=== PATIENT | male | born 1945 | race Caucasian/White ===

== ENCOUNTER 2017-05-03 09:33 | Emergency (ER) | payer OTHER, MEDICARE ==
--- NOTE | 2017-05-03 10:07 | ER Document Report ---
ED Animal Bite - General Chief Complaint: Dog Bite Stated Complaint: DOG BITE Time Seen by Provider: 05/03/17 09:49 Mode of Arrival: Ambulatory Information source: Patient Notes: Patient is a 71-year-old male presents to the ED complaining of a dog bite to his right forearm that happened this morning with puncture wounds. Patient states that his neighbor's dog. The dog is reported to have its immunizations up-to-date. Patient states that his last tetanus was in the last 2 years. Patient states that he continues to have mobility in his right arm forearm and right wrist, but does have pain associated. He denies any numbness/tingling. Denies any loss of strength/paralysis. Denies any fever, chest pain, palpitations, shortness breath, dyspnea, abdominal pain, nausea/vomiting. No med allergies. Patient takes medication for hypertension and an enlarged prostate. 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 TRAVEL OUTSIDE OF THE [place] IN LAST 30 DAYS: No - HPI Context of attack: "Unprovoked" attack - pt was walking on the sidewalk with his , neighbor's dogs were off-leash. He was starting to talk with one of the dogs when another came up and bit his arm and fled. Appearance of animal: Appeared well Animal's immunizations: UTD - per the dog's owners - Related Data Allergies/Adverse Reactions: No Known Allergies Allergy (Verified 05/03/17 09:36) Past Medical History - Social History Smoking Status: Unknown if Ever Smoked Family History: Reviewed & Not Pertinent Patient has suicidal ideation: No Patient has homicidal ideation: No Renal/ Medical History: Denies: Hx Peritoneal Dialysis Review of Systems - Review of Systems Notes: REVIEW OF SYSTEMS: CONSTITUTIONAL : Denies fever, chills, or sweats. Denies recent illness. EENT: Denies eye, ear, throat, or mouth pain or symptoms. Denies nasal or sinus congestion or discharge. Denies throat, tongue, or mouth swelling or difficulty swallowing. CARDIOVASCULAR: Denies chest pain. Denies palpitations or racing or irregular heart beat. Denies ankle edema. RESPIRATORY: Denies cough, cold, or chest congestion. Denies shortness of breath, difficulty breathing, or wheezing. GASTROINTESTINAL: Denies abdominal pain or distention. Denies nausea, vomiting , or diarrhea. Denies blood in vomitus, stools, or per rectum. Denies black, tarry stools. Denies constipation. GENITOURINARY: Denies difficulty urinating, painful urination, burning, frequency, blood in urine, or discharge. MUSCULOSKELETAL: see hpi SKIN: see hpi Neuro: see hpi ALL OTHER SYSTEMS REVIEWED AND NEGATIVE. Dictation was performed using [employer] voice recognition software Physical Exam - Vital signs Vitals: Temp Pulse Resp BP Pulse Ox 97.8 F 67 20 174/87 H 100 05/03/17 09:36 05/03/17 09:36 05/03/17 09:36 05/03/17 09:36 05/03/17 09:36 Notes: PHYSICAL EXAMINATION: GENERAL: Well-appearing, well-nourished and in no acute distress. LUNGS: Breath sounds clear to auscultation bilaterally and equal. No wheezes rales or rhonchi. HEART: Regular rate and rhythm without murmurs, rubs, gallops. Musculoskeletal: Rt arm, forearm, wrist: FROM to passive/active. Strength 5+/ 5. Cardiac Catheterization Technician strength intact. N/V intact distal. Extremities: No cyanosis, clubbing, or edema b/l. Peripheral pulses 2+. Capillary refill less than 3 seconds. NEUROLOGICAL: Normal sensory, motor exams. Reflexes intact. PSYCH: Normal mood, normal affect. SKIN: + 0.5cm puncture wound to the rt posterior forearm with 2 smaller abrasion /slight puncture wound to the posterolateral forearm. + bleeding, controlled, from the larger puncture wound. Course - Re-evaluation Re-evalutation: 05/03/17 11:12 Patient is afebrile, well-hydrated, 71-year-old male who presents the ED status post dog bite this morning his right forearm. Tetanus is up-to-date. X-ray was unremarkable for any foreign body or fracture. Neurovascularly the patient' s right upper extremity is intact, and PE is otherwise unremarkable for any systemic infection at this time. Vitals are stable. Wound dressing performed with minimal debridement. We will not suture the wound at this time. I will send him home with Augmentin 875/125 mg p.o. twice daily for 1 week as prophylaxis. Pt declined sling. Wound instructions reviewed. Conservative measures otherwise for symptoms. Patient to see PCM in 2-3 days for a wound recheck. He may return to the ED for a wound recheck. Return to the ED for any other worsening/concerning symptoms otherwise as reviewed. Patient and are in agreement. - Vital Signs Vital signs: Temp Pulse Resp BP Pulse Ox 97.8 F 67 20 174/87 H 100 05/03/17 09:36 05/03/17 09:36 05/03/17 09:36 05/03/17 09:36 05/03/17 09:36 Discharge - Discharge Clinical Impression: Dog bite Qualifiers: Encounter type: initial encounter Qualified Code(s): W54.0XXA - Bitten by dog, initial encounter Puncture wound of right forearm Qualifiers: Encounter type: initial encounter Qualified Code(s): S51.831A - Puncture wound without foreign body of right forearm, initial encounter Condition: Stable Additional Instructions: Keep the wound clean Do not shower for the next 24 hours, then he may change the dressings once daily and wash with soap and water Apply a triple antibiotic ointment to wounds for the next 2-3 days, and keep covered with a nonstick dressing Use a sling for the next 2 days as needed for discomfort Tylenol ibuprofen as needed otherwise Rest, ice, compression, elevation may help Light stretches and strengthening exercises as tolerated Take antibiotic for full dose Recheck with your PCM/ED in 2-3 days Monitor for any signs of infection (abscess, purulent discharge, red streaks, fever) and seek medical attention if so Return to the ED with any worsening symptoms and/or development of fever, headache, chest pain, palpitations, syncope, shortness of breath, trouble breathing, abdominal pain, n/v/d, muscle weakness/paralysis, signs of infection , or other worsening symptoms that are concerning to you. Monitor the dog that bit you for any behavioral changes or illness over the next couple weeks. Animal Bites Animal bites are often heavily contaminated with bacteria. In spite of thorough cleansing and proper treatment, these wounds frequently become infected. Bite wounds of the hands are especially prone to complications. Bites are dressed, if possible. Large wounds may require suturing after internal cleansing. Because of infection risk, some large wounds must remain unstitched. Your doctor is trained to advise you on the best treatment for your bite. Call the doctor at once if the wound becomes red, swollen, warm, increasingly painful, or if it begins to drain. Danger signs also include red streaks up the involved extremity, swollen glands in the groin or under the arm , or fever and chills. The risk of rabies from domestic animals is very low. Bats, sick animals, and wild animals may expose you to rabies. The physician, or the health department, will inform you if you will need to receive the rabies vaccine. Prescriptions: Amox Tr/Potassium Clavulanate [Augmentin 875-125 Tablet] 1 tab PO BID 7 Days Forms: Elevated Blood Pressure
--- NOTE | 2017-05-03 10:35 | RADIOLOGY REPORT (SQ) ---
EXAM DESCRIPTION: FOREARM RIGHT COMPLETED DATE/TIME: 05/03/2017 10:24 am REASON FOR STUDY: Dog bite rt forearm with puncture wounds COMPARISON: None. NUMBER OF VIEWS: Two views. TECHNIQUE: Two radiographic images acquired of the right forearm, including elbow and wrist in at le ast one projection. LIMITATIONS: None. FINDINGS: MINERALIZATION: Normal. BONES: No acute fracture. No worrisome bone lesions. SOFT TISSUES: No calcified or metallic foreign bodies. OTHER: No other significant finding. IMPRESSION: Nothing acute. TECHNICAL DOCUMENTATION: JOB ID: [id number]- All Rights Reserved
[2017-05-03 11:32] VITALS: BP 166/83
== END 2017-05-03 11:27 | disposition home or self-care (01) ==
LOC: ER 09:33
DX: S51.851A Open bite of right forearm, initial encounter (principal); W54.0XXA Bitten by dog, initial encounter; Y92.480 Sidewalk as the place of occurrence of the external cause
CPT/HCPCS: 99283